=== PATIENT | female | born 1995 | race Caucasian/White ===

== ENCOUNTER 2017-06-22 15:02 | Emergency (ER) | payer OTHER, SELFPAY ==
[2017-06-22 15:18] VITALS: BP 102/77; PULSE 88; RESP 20; TEMP 36.9; O2SAT 99; BMI 20.9
--- NOTE | 2017-06-22 15:33 | HMH.EDUTC ---
[facility] [place] Impression: Exposure to STD Disposition: Home, Self-Care Condition on Discharge: Good Instructions: DI for Chlamydia, Gonorrhea, DI for Gonorrhea Additional Instructions: No unprotected sexual activity Make sure to inform all partners that you was recently treated and they need to get tested and treated to keep from spreading infection Follow up with OBGYN as advised REturn if needed Straight to ER if any life threatening problems or pain Follow up with family doctor in 12-24 hours if no improvement or worsening of symptoms Time of Disposition: 15:48 Medical Decision Making - Medical Records Medical records reviewed: Yes: I reviewed the patient's medical records. Vital Signs: 06/22/17 15:18 Temperature 98.4 F Temperature Source Temporal Artery Scan Pulse Rate [Right] 88 Respiratory Rate 20 Blood Pressure [Right Arm] 102/77 Blood Pressure Mean [Right Arm] 85 Blood Pressure Source [Right Arm] Automatic Cuff Blood Pressure Position [Right Arm] Sitting 02 Sat by Pulse Oximetry 99 Oxygen Delivery Method Room Air - [place] Inquiry Pt receiving controlled substance: No [place] was queried for this patient: No [facility] [place] - General Stated complaint: std stest Mode of Arrival: Ambulatory Source of Information: Patient Limitations: No Limitations Description of Symptoms (Recalled from Triage Doc. by RN): BOYFRIEND POS FOR GONERRHEA AND CHLAMYDIA TODAY HEENT Symptoms (Recalled from RN notes): No Resp Symptoms (Recalled from RN notes): No Skin Symptoms (Recalled from RN notes): No MS Symptoms (Recalled from RN notes): No Functional Status (Recalled from RN notes): N - History of Present Illness Provider Complaint: Patient state that boyfriend was tested today and tested positive for chlamydia and gonorrhea State that he received treatment today and was told that he needed to tell her to go get treated State that they have had unprotected sex and even though she is not currently having any symptoms she does not want to be tested and wants to recieve treatment - Related Data Allergies Allergy/AdvReac Type Severity Reaction Status Date / Time No Known Allergies Allergy Verified 06/22/17 15:21 - Worker's Comp Is this a Worker's Comp case?: No [facility] History I have reviewed the patient's past medical history: Yes - Social History Smoking Status: Current every day smoker Tobacco Type: cigarettes Alcohol Intake: never - Psychiatric History Expresses thoughts of harming self/others: None Suicide Plan Description: No Plan ROS Obtained: Yes All systems reviewed & no additional complaints - Genitourinary Female Genitourinary: Reports as per HPI, Denies genital lesions, Denies genital itching, Denies pelvic pain, Denies vaginal discharge, Denies vaginal odor, Denies vaginal itching Physical Exam - General General appearance: alert, in no apparent distress - Respiratory Respiratory exam: Present: normal lung sounds bilaterally. Absent: respiratory distress - Cardiovascular Cardiovascular exam: Present: regular rate, normal rhythm. Absent: JVD - Neurological Exam Neurological exam: Present: alert, oriented X3
--- NOTE | 2017-06-22 15:39 | ED_ITS ---
[facility] [place] Disposition Clinical Impression: Exposure to STD Disposition: Home, Self-Care Condition on Discharge: Good Instructions: DI for Chlamydia, Gonorrhea, DI for Gonorrhea Additional Instructions: No unprotected sexual activity Make sure to inform all partners that you was recently treated and they need to get tested and treated to keep from spreading infection Follow up with OBGYN as advised REturn if needed Straight to ER if any life threatening problems or pain Follow up with family doctor in 12-24 hours if no improvement or worsening of symptoms Time of Disposition: 15:48 Medical Decision Making - Medical Records Medical records reviewed: Yes: I reviewed the patient's medical records. Vital Signs: 06/22/17 15:18 Temperature 98.4 F Temperature Source Temporal Artery Scan Pulse Rate [Right] 88 Respiratory Rate 20 Blood Pressure [Right Arm] 102/77 Blood Pressure Mean [Right Arm] 85 Blood Pressure Source [Right Arm] Automatic Cuff Blood Pressure Position [Right Arm] Sitting 02 Sat by Pulse Oximetry 99 Oxygen Delivery Method Room Air - [place] Inquiry Pt receiving controlled substance: No [place] was queried for this patient: No [facility] [place] HPI - General Stated complaint: std stest Mode of Arrival: Ambulatory Source of Information: Patient Limitations: No Limitations Description of Symptoms (Recalled from Triage Doc. by RN): BOYFRIEND POS FOR GONERRHEA AND CHLAMYDIA TODAY HEENT Symptoms (Recalled from RN notes): No Resp Symptoms (Recalled from RN notes): No Skin Symptoms (Recalled from RN notes): No MS Symptoms (Recalled from RN notes): No Functional Status (Recalled from RN notes): N - History of Present Illness Provider Complaint: Patient state that boyfriend was tested today and tested positive for chlamydia and gonorrhea State that he received treatment today and was told that he needed to tell her to go get treated State that they have had unprotected sex and even though she is not currently having any symptoms she does not want to be tested and wants to recieve treatment - Related Data Allergies Allergy/AdvReac Type Severity Reaction Status Date / Time No Known Allergies Allergy Verified 06/22/17 15:21 - Worker's Comp Is this a Worker's Comp case?: No [facility] [place] History I have reviewed the patient's past medical history: Yes - Social History Smoking Status: Current every day smoker Tobacco Type: cigarettes Alcohol Intake: never - Psychiatric History Expresses thoughts of harming self/others: None Suicide Plan Description: No Plan ROS Obtained: Yes All systems reviewed & no additional complaints - Genitourinary Female Genitourinary: Reports as per HPI, Denies genital lesions, Denies genital itching, Denies pelvic pain, Denies vaginal discharge, Denies vaginal odor, Denies vaginal itching Physical Exam - General General appearance: alert, in no apparent distress - Respiratory Respiratory exam: Present: normal lung sounds bilaterally. Absent: respiratory distress - Cardiovascular Cardiovascular exam: Present: regular rate, normal rhythm. Absent: JVD - Neurological Exam Neurological exam: Present: alert, oriented X3
[2017-06-22 16:00] VITALS: BP 110/82; PULSE 78; RESP 16; TEMP 36.7
== END 2017-06-22 16:01 | disposition home or self-care (01) ==
PROVIDERS: Emergency Provider Nurse Practitioner
DX: Z20.2 Contact with and (suspected) exposure to infections with a predominantly sexual mode of transmission (principal); F17.210 Nicotine dependence, cigarettes, uncomplicated
CPT/HCPCS: 96372; 99202

== ENCOUNTER 2019-09-22 11:51 | Emergency (ER) | payer OTHER, SELFPAY ==
[2019-09-22 11:53] VITALS: BP 130/88; PULSE 89; RESP 16; TEMP 37.1; O2SAT 98; BMI 19.5
--- NOTE | 2019-09-22 12:11 | XR_ITS ---
PROCEDURE: XR THORACIC SPINE 2V CLINICAL INDICATION: fall, mid back pain COMPARISON: No exams were available for comparison FINDINGS: There is degenerative disc disease with decrease in the disc space at T6-T7 with slight loss of height of the T6 vertebral body suggesting minimal compression change. This is of unknown age in may be better evaluated with MRI. There is minimal thoracic curvature convex right. Normal alignment with no other significant anomalies. IMPRESSION: Degenerative changes the T6-T7 with minimal wedging of T6 age indeterminate. MRI may provide further evaluation if clinically warranted. Dictated by: Ignacio Knight MD 09/22/2019 13:19 Electronically signed by Ignacio Knight MD in [place] 09/22/2019 13:19
--- NOTE | 2019-09-22 12:13 | HMH.EDGENADL ---
ED Disposition Clinical Impression: Thoracic back pain Qualifiers: Chronicity: acute Back pain laterality: midline Qualified Code(s): M54.6 - Pain in thoracic spine Disposition: Home, Self-Care Condition on Discharge: Good Instructions: DI for Thoracic Back Pain Additional Instructions: You have been evaluated for thoracic back pain, without evidence of fracture. Please take Tylenol and ibuprofen for pain. Use Lidoderm patches. Use heat and ice. Use stretching and exercise. Follow-up with your primary care doctor, you may need physical therapy. Return to the emergency department for any new or worsening symptoms, chest pain, shortness of breath, numbness or weakness in your arms or legs. Referrals: Provider,Referral, [Primary Care Provider] - Forms: Work/School Release Time of Disposition: 13:29 - Critical Care Critical Care Time: No Attestation: On 09/22/19, the high probability of a clinically significant, sudden or life threatening deterioration of the following system(s) required my full and direct attention, intervention and personal management. The time I documented below is in addition to time spent performing reported procedures but includes the following listed in this critical care notation. Medical Decision Making - [place] Inquiry Pt receiving controlled substance: No Vital Signs: 09/22/19 11:53 Temperature 98.8 F Temperature Source Oral Pulse Rate [Left Radial] 89 Respiratory Rate 16 Blood Pressure [Right Arm] 130/88 Blood Pressure Mean [Right Arm] 102 Blood Pressure Position [Right Arm] Sitting 02 Sat by Pulse Oximetry 98 Oxygen Delivery Method Room Air Orders (Tests/Meds): ED MEDICATIONS Generic Name Dose Route Start Last Admin Trade Name Freq PRN Reason Stop Dose Admin Lidocaine 1 each 09/22/19 12:15 09/22/19 13:17 Lidoderm 5% Transdermal Patch TP 10/22/19 12:14 1 each Q24H RAUL Administration Discontinued Medications Generic Name Dose Route Start Last Admin Trade Name Freq PRN Reason Stop Dose Admin Ibuprofen 400 mg 09/22/19 12:12 09/22/19 12:22 Motrin 400mg Tablet PO 09/22/19 12:13 400 mg ONCE ONE Administration Medical Decision Narrative: In summary this is a 24-year-old female presenting to the emergency department with midthoracic back pain. Patient is in no acute distress arrival to the emergency department. Vital signs are stable. Differential diagnoses include musculoskeletal strain, overuse injury, tension. Given history of fall, cannot exclude old fracture or scoliosis. Plan to obtain plain film x-rays of the T-spine and reassess. Given 400 mg of ibuprofen and Lidoderm patch applied. X-rays show DJD and thoracic compression at T6. This is consistent with old injury. 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 I recommended she take Tylenol and ibuprofen for pain. Use strengthening and stretching exercises. May need physical therapy. Follow-up with PCP. General Adult HPI - General Stated complaint: back pain Time Seen by Provider: 09/22/19 12:13 Source of Information: Patient Limitations: No Limitations - History of Present Illness HPI narrative: 24-year-old female presenting to the emergency department with back pain. Pain is located in between her shoulder blades. Feels sharp and intense and it happens and lasts for seconds at a time. She has pain that is worse with motion. 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 Minimal pain at rest. She had a mechanical fall 2 years ago but did not get evaluated at a hospital. She denies any numbness, weakness, tingling in her arms. No low back pain. No changes in bowel or bladder habits. No numbness, weakness, tingling in her legs. She has not taken any medications for pain. - Related Data Allergies Allergy/AdvReac Type Severity Reaction Status Date / Time No Known Allergies Allergy Verified 06/22/17 15:21
[2019-09-22 13:40] VITALS: BP 122/85; PULSE 80; RESP 20; TEMP 36.8; O2SAT 98
== END 2019-09-22 13:41 | disposition home or self-care (01) ==
PROVIDERS: Emergency Provider Emergency Medicine
DX: M54.6 Pain in thoracic spine (principal)
CPT/HCPCS: 72070; 99282

== ENCOUNTER → 2019-09-27 16:54 | Outpatient (CLI) | payer OTHER, SELFPAY ==
[2019-09-27 17:48] LABS: Basophils % 0.7 % (0.1-2.0); Eosinophils # 0.3 K/mm3 (0.0-0.4); Eosinophils % 5.8 % (0.1-12.0); Hematocrit 38.6 % (37.0-47.0); Lymphocytes # 2.4 K/mm3 (0.7-4.5); Lymphocytes % 46.8 % (10-50); Mean Corpuscular HGB Conc 33.8 g/dL (31.8-35.4); Mean Corpuscular Hemoglobin 31.2 pg (27.0-31.2); Mean Corpuscular Volume 92.3 fl (81-99); Mean Platelet Volume 9.4 fl (7.4-10.4); Monocytes # 0.3 K/mm3 (0.1-1.0); Monocytes % 5.8 % (1.7-9.3); Neutrophils # 2.1 K/mm3 (1.8-7.8); Neutrophils % 40.9 % (37.0-80.0); Platelet Count 204 K/mm3 (142-424); Red Blood Count 4.18 M/mm3 (4.20-5.40); Red Cell Distribution Width 12.5 % (11.5-17.5); White Blood Count 5.1 K/mm3 (4.8-10.8)
[2019-09-27 17:50] LABS: Chloride 106 mmol/L (98-107)
[2019-09-27 17:51] LABS: Potassium 3.8 mmoL/L (3.5-5.1); Sodium 140 mmol/L (136-145)
[2019-09-27 17:53] LABS: Alanine Aminotransferase 9 U/L (12-78); Albumin Level 4.6 g/dl (3.5-5.0); Albumin/Globulin Ratio 1.8 (1.1-1.8); Alkaline Phosphatase 63 U/L (38-126); Anion Gap 10.8 mEq/L (5-15); Aspartate Amino Transferase 20 U/L (14-36); Bilirubin,Total 0.6 mg/dl (0.2-1.3); Blood Urea Nitrogen 4 mg/dl (7-17); Carbon Dioxide 27 mmol/L (22.0-30.0); Estimated Glomerular Filt Rate 125 ml/min (>60); GFR (African American) 151 ML/MIN (>60); Globulin 2.5 g/dL (1.3-3.2); Total Protein,Serum 7.1 g/dl (6.3-8.2)
[2019-09-27 17:54] LABS: Calcium 9.2 mg/dl (8.4-10.2); Chol/HDL Ratio 4.1 (1-3.5); Cholesterol 118 mg/dl (140-200); Glucose 77 mg/dl (74-100); HDL Cholesterol 29 mg/dl (40-60); Triglycerides 96 mg/dl (30-150); VLDL Cholesterol 19 mg/dL (0-40)
[2019-09-27 18:06] LABS: Direct LDL Cholesterol 81.38 mg/dL (100-129)
[2019-09-27 18:12] LABS: T4 (Thyroxine) 7.9 ug/dl (5.53-11.0)
[2019-09-27 18:25] LABS: Thyroid Stimulating Hormone 0.32 uIU/mL (0.465-4.68)
[2019-09-29 11:18] LABS: Vitamin D 25 Hydroxy 24.1 ng/mL (30.0-100.0)
== END ==
PROVIDERS: Visit Provider Nurse Practitioner Family
DX: Z76.89 Persons encountering health services in other specified circumstances (principal); M54.6 Pain in thoracic spine; E55.9 Vitamin D deficiency, unspecified
CPT/HCPCS: 80053; 80061; 82652; 84436; 84443; 85025

== ENCOUNTER 2019-10-16 10:00 | Outpatient (RCR) | payer OTHER, SELFPAY ==
--- NOTE | 2019-10-04 09:29 | HMH.PTOPEV ---
PT Outpatient Evaluation Rehab PT Outpatient Evaluation Start: 10/04/19 08:51 Freq: Status: Active Protocol: Document 10/04/19 09:13 LEANNE (Rec: 10/04/19 09:28 GENNAROCOLT [id number]) Electronically Signed By Eliot James, PT 10/04/19 09:13 Outpatient Therapy Subjective History Subjective History Patient is a 24 year old female presenting to outpatient PT with reports of chronic mid-thoracic spine pain starting after a fall involving her landing on her buttocks. Most recent imaging indicates degenterative changes with minimal wedging at T6. Pt presents with significantly poor postural awareness. No reports of radicular symptoms. Pain is local to T 4-8 spinal segements. Significant MMT deficits noted with mid/lower trap and rhomboid testing 4/5 B for all. No previous Rx to report. No other comorbidities to report. Chief Complaint Pain,Stiff Symptom Type Ache,Sharp Symptoms Relieved By Rest/Positioning,Activity Symptoms Aggravated By Physical Activity,Lifting Prior Functional Limitations None Current Functional Limitations Reaching,Lifting,Housework, Recreation Activity Symptom Description Constant but Variable Level of pain today (0-10) 3 Pain scale - at its best (0-10) 2 Pain scale - at its worst (0-10) 8 Lumbopelvic Eval Posture Thoracic Spine Posture Standing Position Increased Kyphosis Lumbar Spine Posture Standing Position Neutral Assistive device Assistive Devices None / NA Palapation tenderness bilateral thoracic spinal tenderness Yes: T4-8 3/4 Accessory Movement T-spine Vertebrae Accessory Movements Central P/A Pandora that Elicit Symptoms Range of Motion Lumbar Spine ROM Reason Not Measured Within Functional Limits Outpatient Therapy Assessment Impairments Problems/Impairmments Palpation Tenderness,Impaired Strength,Impaired Lifting, Impaired Household Care, Impaired Recreational Activities,Impaired Work Activities,Subjective C/O Pain Prognosis Rehab Potential Good Clinical Impression Consistent with Diagnosis Yes Short Term Goals
== END 2019-10-16 10:05 | disposition home or self-care (01) ==
LOC: PT 10:00
PROVIDERS: PCP Nurse Practitioner Family; Visit Provider Nurse Practitioner Family
DX: M54.6 Pain in thoracic spine (principal)
CPT/HCPCS: 97010; 97014; 97035; 97110; 97163; G0283